=== PATIENT | male | born 1970 | race Caucasian/White ===

== ENCOUNTER → 2021-05-24 | Day surgery (SDC) | payer OTHER ==
[~2021-05-24] VITALS: Ht 179.1 cm; Wt 79.4 kg
[~2021-05-24] MED LIST: AMARYL4 MG PO; IBUPROFEN800 MG PO; JANUMET 50-5001 EACH PO; LIPITOR20 M1 PO; PRINIVIL10 MG PO; TESSALON PERLE100 M1 PO
== END | disposition home or self-care (01) ==
LOC: FAS 08:00
DX: Z12.11 Encounter for screening for malignant neoplasm of colon (principal); E11.9 Type 2 diabetes mellitus without complications; F17.220 Nicotine dependence, chewing tobacco, uncomplicated; Z79.899 Other long term (current) drug therapy; Z79.84 Long term (current) use of oral hypoglycemic drugs
CPT/HCPCS: J2250; J2704; J7120